=== PATIENT | female | born 1950 | race Caucasian/White ===

== ENCOUNTER → 2017-02-25 | Outpatient (CLI) | payer OTHER, MEDICARE ==
[~2017-02-25] MED LIST: HRBLS PO; MISCCAP3 PO; MULT-506 PO; VITA400C15 PO; VITB12 SL
--- NOTE | 2017-02-25 11:24 | DIAGNOSTIC IMAGING REPORT ---
RIGHT KNEE RADIOGRAPHS WITH COMPARISON STANDING AP RADIOGRAPH OF LEFT KNEE CLINICAL HISTORY: Right knee pain and swelling following injury. COMPARISON: None FINDINGS: Standing AP radiograph of the left knee demonstrates preserved medial and lateral compartment joint spaces. There is a small osteophyte along the medial femoral condyle. There are suspected varicosities within the lower extremities. There is no acute fracture of the right knee. There is moderate medial compartment joint space narrowing of the right knee. A small right knee joint effusion is present. IMPRESSION: 1. Moderate to severe osteoarthritis within the medial compartment of the right knee. 2. Small right knee joint effusion. 3. No acute fracture. Electronically signed by: Mane Lagos M.D. 02/25/2017 11:22 AM Dictated Date/Time: 02/25/2017 11:19 AM
== END | disposition home or self-care (01) ==
LOC: C.RDSM 11:05
PROVIDERS: ATTEND Physician Assistant
DX: M25.561 Pain in right knee (principal)

== ENCOUNTER → 2017-10-06 | Day surgery (SDC) | payer OTHER, MEDICARE ==
[2017-09-20 12:54] VITALS: Ht 162.6 cm; Wt 56.8 kg
[~2017-10-06] VITALS: Ht 162.6 cm; Wt 56.8 kg
[~2017-10-06] MED LIST changes: +ASCO10003 PO; +ATROPINE SULFATE 0.1 MG/ML 5ML SYR IV PRN; +CHOL1TAB46 PO; +COQ10 PO; +EpHEDrine SULFATE INJ 50 MG/ML AMP IV PRN; -HRBLS PO; +MAGNESIUM PO; -MISCCAP3 PO; +MISCCAP80 PO; -MULT-506 PO; +MULTTAB58 PO; +PROPOFOL IV EMULSION 10 MG/ML 20 ML VIAL IV ONE; +SODIUM CHLORIDE 0.9% 500ML 500 ML IV ONE; +TRIPHALA PO; -VITA400C15 PO; +VITA400C3 PO; +VITAMIN B12 PO; -VITB12 SL; +[UNRECOGNIZED DRUG - CODE] PO; +[UNRECOGNIZED DRUG - OTHER] PO; +[UNRECOGNIZED DRUG - REMARK] PO
--- NOTE | 2017-10-06 14:29 | Endo History and Physical ---
History & Physical Date of Service: Oct 06, 2017. Chief Complaint: CHANGE IN BOWEL HABITS Referring Physician: DR. MURGUIA History of Present Illness 67 yo CF who presents for colonoscopy secondary to change in bowel habits. Past Medical History Neurological Disorder, Osteoporosis, Arthritis, Gastrointestinal Disorder, Anxiety, Blood Dyscrasias, Heart Disease Past Surgical History Hx Cardiac Surgery: No Hx Internal Defibrillator: No Hx Pacemaker: No Hx Abdominal Surgery: Yes (HYSTERECTOMY, TUBAL LIGATION, RT INGUINAL HERNIA X 2 ) Hx of Implantable Prosthesis: No Hx Cancer Surgery: No Hx Thoracic Surgery: No Hx Orthopedic: No Hx Urinary Tract Surgery: No Family History Colon CA, Polyp Social History Hx Alcohol Use: Yes (RARELY) Allergies Coded Allergies: Gluten (Verified Allergy, Unknown, SENSITIVITY, 09/20/17) Sulfa Drugs (Verified Allergy, Unknown, HIVES, 09/20/17) Uncoded Allergies: FEATHERS (Allergy, Unknown, EYES SWELLING SHUT, 09/20/17) Current Medications Reported Home Medications Medications Dose Route/Sig Max Daily Dose Days Date Category [Vitamin B12] 1,000 Mcg PO QAM 09/20/17 Reported Vitamin D3 (Cholecalciferol) 5,000 Unit Tab 1 Tab PO QAM 09/20/17 Reported Vitamin C (Ascorbic Acid) 1,000 Mg Tab 1 Tab PO QAM 09/20/17 Reported [Triphala] 2 Cap PO HS 09/20/17 Reported [Magnesium] 2 Tab PO HS 09/20/17 Reported [Stroteum Boost] 2 Cap PO QAM 09/20/17 Reported [Algae-Amilcar] 2 Cap PO QAM 09/20/17 Reported [Coq10] 10 Mg PO QAM 09/20/17 Reported Probiotic (Probiotic Product) 1 Cap Cap 1 Cap PO QAM 09/20/17 Reported [Hemolytic Enzyme] 2 Cap PO AC 09/20/17 Reported Vitamin E 400 Iu (Vitamin E) 400 Unit Cap 2 Cap PO QAM 09/20/17 Reported Multivitamin (Multiple Vitamin) 1 Tab Tab 0.5 Dose PO BID 09/20/17 Reported Vital Signs Weight (Kilograms): 56.82 Height (Feet): 5 Height (Inches): 4 Date Time Temp Pulse Resp B/P (MAP) Pulse Ox O2 Delivery O2 Flow Rate FiO2 10/06/17 14:20 36.7 83 16 125/74 (91) 98 Room Air Physical Exam General Appearance: WD/WN, no apparent distress Respiratory/Chest: Auscultation: breath sounds normal Cardiovascular: Heart Auscultation: RRR Abdomen: Bowel Sounds: normal Inspection & Palpation: soft, non-distended, no tenderness, guarding & rebound Assessment and Plan Assessment: 67 yo CF who presents for colonoscopy secondary to change in bowel habits. Plan: Proceed with colonoscopy.
--- NOTE | 2017-10-06 15:45 | Discharge Instructions ---
Endoscopy Patient Instructions Date / Procedure(s) Performed Oct 06, 2017. Colonoscopy Allergy Information Coded Allergies: Gluten (Verified Allergy, Unknown, SENSITIVITY, 09/20/17) Sulfa Drugs (Verified Allergy, Unknown, HIVES, 09/20/17) Uncoded Allergies: FEATHERS (Allergy, Unknown, EYES SWELLING SHUT, 09/20/17) Discharge Date / Findings Oct 06, 2017. Internal hemorrhoids Medication Instructions OK to resume all medications today as prescribed Reported Home Medications Medications Dose Route/Sig Max Daily Dose Days Date Category [Vitamin B12] 1,000 Mcg PO QAM 09/20/17 Reported Vitamin D3 (Cholecalciferol) 5,000 Unit Tab 1 Tab PO QAM 09/20/17 Reported Vitamin C (Ascorbic Acid) 1,000 Mg Tab 1 Tab PO QAM 09/20/17 Reported [Triphala] 2 Cap PO HS 09/20/17 Reported [Magnesium] 2 Tab PO HS 09/20/17 Reported [Stroteum Boost] 2 Cap PO QAM 09/20/17 Reported [Algae-Amilcar] 2 Cap PO QAM 09/20/17 Reported [Coq10] 10 Mg PO QAM 09/20/17 Reported Probiotic (Probiotic Product) 1 Cap Cap 1 Cap PO QAM 09/20/17 Reported [Hemolytic Enzyme] 2 Cap PO AC 09/20/17 Reported Vitamin E 400 Iu (Vitamin E) 400 Unit Cap 2 Cap PO QAM 09/20/17 Reported Multivitamin (Multiple Vitamin) 1 Tab Tab 0.5 Dose PO BID 09/20/17 Reported Provider Instructions Activity Restrictions - No exercising or heavy lifting for 24 hours. - Do not drink alcohol the day of the procedure. - Do not drive a car or operate machinery until the day after the procedure. - Do not make any important decisions or sign important papers in 24 hours after the procedure. Following Day: - Return to full activity which may include returning to work/school. Diet Start your diet with liquids and light foods (jello, soup, juice, toast). Then eat your usual diet if not nauseated. Treatment For Common After Affects For mild abdominal pain, bloating, or excessive gas: - Rest - Eat lightly - Lie on right side Follow-Up Information Follow-up with DR. MURGUIA as scheduled Anesthesia Information What You Should Know You have had a procedure that required some medicine to reduce anxiety and discomfort. This treatment is called moderate sedation. After receiving the treatment, you may be sleepy, but you will be able to breathe on your own. The effects of the treatment may last for several hours. Follow these instructions along with Activity/Diet recommendations noted above: * Do NOT do anything where dizziness or clumsiness would be dangerous. * Rest quietly at home today, then you can be up and about tomorrow. * Have a responsible person stay with you the rest of today. * You may have had an I.V. today. If so, you may take the dressing off later today. Recommendations Call your doctor if: * Trouble breathing * Continuous vomiting for more than 24 hours * Temperature above 101 degrees * Severe abdominal pain or bloating * Pain not relieved by pain medicine ordered * There is increased drainage or redness from any incision * A large amount of rectal bleeding greater than 2-3 tablespoons. (If you had a polyp/s removed or have hemorrhoids, a small amount of blood - from the rectum is to be expected.) * You have any unanswered questions or concerns. IN THE EVENT OF A SERIOUS EMERGENCY, GO TO THE NEAREST EMERGENCY ROOM Your discharge instructions were prepared by provider Tank Dorado. Patient Instructions Signature Page Yazmin Hall Patient (or Guardian) Signature/Date: I have read and understand the instructions given to me by my caregivers. Caregiver/RN/Doctor Signature/Date: The above-named patient and/or guardian has received patient instructions on this date. + Original Patient Signature Page (only) stays with chart. Please make copy for patient.
[2017-10-06 16:09] VITALS: BP 109/70; PULSE 57; O2SAT 100
--- NOTE | 2017-10-06 16:29 | Anesthesiology Progress Note ---
Anesthesia Post Op Note Date & Time Oct 06, 2017 at 16:29 Vital Signs Pain Intensity: 0 Vital Signs Past 12 Hours Date Time Temp Pulse Resp B/P (MAP) Pulse Ox O2 Delivery O2 Flow Rate FiO2 10/06/17 16:09 57 16 109/70 (83) 100 Room Air 10/06/17 15:59 63 16 120/66 (84) 100 Room Air 10/06/17 15:49 71 16 103/58 (73) 100 Room Air 10/06/17 14:20 36.7 83 16 125/74 (91) 98 Room Air Notes Mental Status: alert / awake / arousable, participated in evaluation Pt Amnestic to Procedure: Yes Nausea / Vomiting: adequately controlled Pain: adequately controlled Airway Patency, RR, SpO2: stable & adequate BP & HR: stable & adequate Hydration State: stable & adequate Anesthetic Complications: no major complications apparent
--- NOTE | 2017-10-06 16:37 | GI REPORT ---
Procedure Date: 10/06/2017 3:18 PM Procedure: Colonoscopy Indications: Change in bowel habits Medicines: Monitored Anesthesia Care Complications: No immediate complications. Estimated Blood Loss: Estimated blood loss: none. Procedure: Pre-Anesthesia Assessment: - Prior to the procedure, a History and Physical was performed, and patient medications and allergies were reviewed. The patient's tolerance of previous anesthesia was also reviewed. The risks and benefits of the procedure and the sedation options and risks were discussed with the patient. All questions were answered, and informed consent was obtained. Prior Anticoagulants: The patient has taken no previous anticoagulant or antiplatelet agents. ASA Grade Assessment: II - A patient with mild systemic disease. After reviewing the risks and benefits, the patient was deemed in satisfactory condition to undergo the procedure. After I obtained informed consent, the scope was passed under direct vision. Throughout the procedure, the patient's blood pressure, pulse, and oxygen saturations were monitored continuously. The scope was introduced through the anus and advanced to the terminal ileum. The colonoscopy was performed without difficulty. The patient tolerated the procedure well. The quality of the bowel preparation was good. The terminal ileum, ileocecal valve, appendiceal orifice, and rectum were photographed. Findings: The perianal and digital rectal examinations were normal. Non-bleeding internal hemorrhoids were found during retroflexion. The hemorrhoids were small. The exam was otherwise without abnormality. Impression: - Non-bleeding internal hemorrhoids. - The examination was otherwise normal. - No specimens collected. Recommendation: - Resume previous diet. - Continue present medications. - Repeat colonoscopy in 5 years for surveillance. - Return to primary care physician as previously scheduled. Takn Dorado, DO 10/06/2017 4:36:30 PM This report has been signed electronically. Note Initiated On: 10/06/2017 3:18 PM I attest to the content of the Intraoperative Record and orders documented therein, exceptions below
== END | disposition home or self-care (01) ==
LOC: C.GI 13:20
PROVIDERS: ATTEND Internal Medicine
DX: R19.4 Change in bowel habit (principal); M81.0 Age-related osteoporosis without current pathological fracture; D75.9 Disease of blood and blood-forming organs, unspecified; I51.9 Heart disease, unspecified; M19.90 Unspecified osteoarthritis, unspecified site; Z80.0 Family history of malignant neoplasm of digestive organs; K64.8 Other hemorrhoids

== ENCOUNTER → 2017-12-06 | Outpatient (CLI) | payer OTHER, MEDICARE ==
[~2017-12-06] MED LIST changes: -ATROPINE SULFATE 0.1 MG/ML 5ML SYR IV PRN; -EpHEDrine SULFATE INJ 50 MG/ML AMP IV PRN; -PROPOFOL IV EMULSION 10 MG/ML 20 ML VIAL IV ONE; -SODIUM CHLORIDE 0.9% 500ML 500 ML IV ONE
--- NOTE | 2017-12-08 07:48 | MAMMOGRAPHY REPORT ---
BILATERAL DIGITAL SCREENING MAMMOGRAM TOMOSYNTHESIS WITH CAD: 12/06/2017 CLINICAL HISTORY: Routine screening. Patient has no complaints. TECHNIQUE: Breast tomosynthesis in addition to standard 2D mammography was performed. Current study was also evaluated with a Computer Aided Detection (CAD) system. COMPARISON: Comparison is made to exams dated: 10/03/2013 ultrasound, 10/03/2013 mammogram - [facility], 08/21/2008, 08/21/2008, and 08/21/2008. BREAST COMPOSITION: There are scattered areas of fibroglandular density in both breasts. FINDINGS: A linear scar marker overlies the upper outer quadrant of the left breast. The glandular p attern is similar to prior mammograms. No suspicious mass, architectural distortion or cluster of mi crocalcifications is seen. IMPRESSION: ACR BI-RADS CATEGORY 1: NEGATIVE There is no mammographic evidence of malignancy. A 1 year screening mammogram is recommended. The pa tient will receive written notification of the results. Approximately 10% of breast cancers are not detected with mammography. A negative mammographic report should not delay biopsy if a clinically suggestive mass is present. Nia Alvarado M.D. ay/:12/06/2017 16:13:55 Circulation Representative: Janine DIOP(Jesus)(Marques), [facility] letter sent: Normal 1/2 BI-RADS Code: ACR BI-RADS Category 1: Negative
== END | disposition home or self-care (01) ==
LOC: C.MAMM 11:37
PROVIDERS: ATTEND Nurse Practitioner Family
DX: Z12.31 Encounter for screening mammogram for malignant neoplasm of breast (principal); Z13.820 Encounter for screening for osteoporosis; E55.9 Vitamin D deficiency, unspecified; M81.0 Age-related osteoporosis without current pathological fracture; M85.88 Other specified disorders of bone density and structure, other site

== ENCOUNTER 2022-02-17 06:41 | Observation (INO) ==
--- NOTE | 2022-01-20 09:51 | PAT Medication Instructions ---
Medication Instructions Date of Service January 20, 2022 Home Medications multivitamin (Daily Multi-Vitamin) 1 tab PO DAILY CBD oil 25 mg PO QAM Circutol 1 tab PO BID Triphala Herbal for Digestion 2 tab PO BID ascorbic acid (vitamin C) 1,000 mg tablet 500 mg PO BID ashwagandha root extract 300 mg capsule 300 mg PO DAILY cholecalciferol (vitamin D3) 125 mcg/mL (5,000 unit/mL) oral drops 125 mcg PO HS hesperidin-diosmin 250 mg-650 mg tablet 1 tab PO DAILY omega-3 fatty acids 1,000 mg capsule (Super Ceres-3) 1,280 mg PO DAILY rutin 500 mg tablet 500 mg PO BID tumeric with curmumin 1 tab PO DAILY ubiquinone 90 mg disintegrating tablet 200 mg PO DAILY vitamin E 200 unit capsule 400 unit PO BID Algae Amilcar Plus 2 dose PO DAILY Amino Acid Syngergy 3 tab PO BID Devigest 2 tab PO DAILY Nattovena 1 tab PO BID Neprinol 1 tab PO BID Pectasol 1 cap PO BID Querctetin 500 mg PO QAM Serretia 1 tab PO BID Strontium 750 mg PO QAM Thyroid Support 1 tab PO BID Vein Care 1 tab PO BID gabapentin 300 mg tablet 300 mg PO QAM magnesium 200 mg tablet 300 mg PO HS magnesium citrate 100 mg tablet 400 mg PO HS naltrexone 50 mg tablet 3 mg PO QPM STOP taking 2 weeks before surgery (or as soon as possible if surgery is within 2 weeks) Circutol 1 tab PO BID Triphala Herbal for Digestion 2 tab PO BID ashwagandha root extract 300 mg capsule 300 mg PO DAILY hesperidin-diosmin 250 mg-650 mg tablet 1 tab PO DAILY omega-3 fatty acids 1,000 mg capsule (Super Ceres-3) 1,280 mg PO DAILY rutin 500 mg tablet 500 mg PO BID tumeric with curmumin 1 tab PO DAILY ubiquinone 90 mg disintegrating tablet 200 mg PO DAILY vitamin E 200 unit capsule 400 unit PO BID Algae Amilcar Plus 2 dose PO DAILY Amino Acid Syngergy 3 tab PO BID Devigest 2 tab PO DAILY Nattovena 1 tab PO BID Neprinol 1 tab PO BID Pectasol 1 cap PO BID Querctetin 500 mg PO QAM Serretia 1 tab PO BID Strontium 750 mg PO QAM Vein Care 1 tab PO BID DO NOT take the morning of surgery multivitamin (Daily Multi-Vitamin) 1 tab PO DAILY CBD oil 25 mg PO QAM ascorbic acid (vitamin C) 1,000 mg tablet 500 mg PO BID Take morning of surgery With a small sip of water, OTHERWISE NOTHING TO EAT OR DRINK AFTER MIDNIGHT: Thyroid Support 1 tab PO BID gabapentin 300 mg tablet 300 mg PO QAM Take evening before surgery Thyroid Support 1 tab PO BID magnesium 200 mg tablet 300 mg PO HS magnesium citrate 100 mg tablet 400 mg PO HS Other Notes STOP 72 hours prior to surgery (please check if okay with prescribing provider) naltrexone 50 mg tablet 3 mg PO QPM If you have any questions please call us at [phone] or [phone] or [phone] or [phone]
--- NOTE | 2022-01-21 13:52 | Anesthesiology Consultation ---
Date of Service January 21, 2022 Assessment & Plan (1) Encounter for pre-operative examination: - COVID screening: Per assessment on 01/21: No known COVID-19 positive contacts. Travel screen negative. Patient vaccinated. Patient reports 12 days ago: sneez ing, mild rhinorrhea, sore throat. Home test was negative. Patient states that symptoms resolved except mild headache/pressure. Patient advised to contact [facility] if symptoms worsening/persistent. Patient vaccinated. Preop Covid test scheduled 02/15 ([place]). Awaiting results. - Post-operative course: Per inital OR booking comments, plan for outpatient joint program. Patient seen at [facility] 01/21. Patient reports strong support at home post-operatively. She states her and her are concerned about going home same day (specifically d/t hx of hypotension and concerns with post-op pain management). She prefers to at least stay overnight if possible. Dahiana at surgeon's office made aware. I advised them to contact [facility] if they change there mind and would like to request outpatient- if so, will need to review with an anesthesiologist. Case switched to 23 hour Obs. - Hx multiple sclerosis* Chart Review Chart Review: Acceptable Risk for Surgery (pending most recent cardiology office visit note) and Patient seen in Pre Admission Testing Teaching & Discussion Pre-Anesthesia Teaching/Discussion Notes: Instructed NPO after midnight before surgery,except medications with 15 cc of water. Medication instructions provided according to the [facility] guidelines. History Surgery Operation Date: 02/17/22 08:50 Proposed Procedures p Right Total Knee Arthroplasty - Jerrod Shine MD Height/Weight Height: 5 ft 3 in Weight: 60.6 kg Allergies Allergy/AdvReac Type Severity Reaction Status Date / Time gluten Allergy Unknown Celiac Verified 01/20/22 09:55 disease Sulfa (Sulfonamide Allergy Unknown Hives Verified 01/20/22 09:55 Antibiotics) FEATHERS Allergy Unknown Eye Uncoded 01/20/22 09:55 swelling Medications Home Medications Medication Instructions Recorded Confirmed Last Taken multivitamin (Daily Multi-Vitamin) 1 tab PO DAILY 01/11/20 01/19/22 08/25/21 CBD oil 25 mg PO QAM 12/30/20 01/19/22 08/25/21 Circutol 1 tab PO BID 12/30/20 01/19/22 08/25/21 Triphala Herbal for Digestion 2 tab PO BID 12/30/20 01/19/22 08/25/21 ascorbic acid (vitamin C) 1,000 mg 500 mg PO BID 12/30/20 01/19/22 08/25/21 tablet ashwagandha root extract 300 mg 300 mg PO DAILY cap 12/30/20 01/19/22 08/25/21 capsule cholecalciferol (vitamin D3) 125 125 mcg PO HS ml 12/30/20 01/19/22 08/25/21 mcg/mL (5,000 unit/mL) oral drops hesperidin-diosmin 250 mg-650 mg 1 tab PO DAILY 12/30/20 01/19/22 08/25/21 tablet omega-3 fatty acids 1,000 mg 1,280 mg PO DAILY 12/30/20 01/19/22 08/25/21 capsule (Super Cooper-3) rutin 500 mg tablet 500 mg PO BID 12/30/20 01/19/22 08/25/21 tumeric with curmumin 1 tab PO DAILY 12/30/20 01/19/22 08/25/21 ubiquinone 90 mg disintegrating 200 mg PO DAILY 12/30/20 01/19/22 08/25/21 tablet vitamin E 200 unit capsule 400 unit PO BID 12/30/20 01/19/22 08/25/21 Algae Amilcar Plus 2 dose PO DAILY 01/19/22 01/19/22 Unknown Amino Acid Syngergy 3 tab PO BID 01/19/22 01/19/22 Unknown Devigest 2 tab PO DAILY 01/19/22 01/19/22 Unknown Nattovena 1 tab PO BID 01/19/22 01/19/22 Unknown Neprinol 1 tab PO BID 01/19/22 01/19/22 Unknown Pectasol 1 cap PO BID 01/19/22 01/19/22 Unknown Querctetin 500 mg PO QAM 01/19/22 01/19/22 Unknown Serretia 1 tab PO BID 01/19/22 01/19/22 Unknown Strontium 750 mg PO QAM 01/19/22 01/19/22 Unknown Thyroid Support 1 tab PO BID 01/19/22 01/19/22 Unknown Vein Care 1 tab PO BID 01/19/22 01/19/22 Unknown gabapentin 300 mg tablet 300 mg PO QAM 01/19/22 01/19/22 Unknown magnesium 200 mg tablet 300 mg PO HS 01/19/22 01/19/22 Unknown magnesium citrate 100 mg tablet 400 mg PO HS 01/19/22 01/19/22 Unknown naltrexone 50 mg tablet 3 mg PO QPM 01/19/22 01/19/22 Unknown Past Medical History Medical History AVM (arteriovenous malformation) of colon Rectal Carpal tunnel syndrome Celiac disease Chronic low blood pressure Baseline BP 100s/70s (occasional dizziness) Elevated TSH euthyroid off prescription meds (on Thyroid supplementation) History of diverticulitis Mild tricuspid regurgitation Per 07/2020 echo Multiple sclerosis No significant flare since 2010 Mild, intermittent dysphagia Neuropathy Rheumatoid arthritis Follows with rheumatology Scleroderma Shingles 08/2021- residual light sensitivity/watering TMJ (temporomandibular joint disorder) Venous insufficiency Exercise / Class Metabolic Activity II 4-5 Yardwork/Stairs/Walk up hill (one FS (no CP, no SOB), mild SOB if very steep hill) Past Family History Family History Father Alcohol abuse Colorectal cancer Mother Anxiety Heart disease Cardiac disorder Myocardial infarction Stroke syndrome Hypertension Stroke Gallbladder disease Pre-diabetes Grandmother Goiter Heart disease Hypertension Stroke Pre-diabetes Aunt Breast cancer Denies family history of Ovarian cancer Prostate cancer Past Surgical History Surgical History History of colonoscopy History of endoscopy History of hemorrhoidectomy History of hernia repair Right inguinal hernia repair with Dr. Zambrano 08/26/08 History of hernia surgery JUN 2021 History of surgery LEFT BREAST 2 CYSTS REMOVED /BENIGN History of vaginal hysterectomy Status post phlebectomy stab phlebectomy of varicose veins Past Anesthesia History No Hx of Anesthesia Complications Daughter: At 6 months old, "airway shut down" when breathing tube removed after ear tubes. No similar issues for patient. History of PONV No Hx of PONV and Hx of Motion Sickness Social History Smoking Status: Never smoker Do You Dip or Chew Tobacco: No Hx Alcohol Use: Yes alcohol intake frequency: a few times a month Hx Substance Use: No substance use type: other Substance Use Type Other:: CBD Review of Systems Patient denies chest pain, shortness of breath, dyspnea on exertion, fever, chills, cough, wheezing, palpitations. Physical Exam Vital Signs VITALS BP 104/65 P 74 TEMP 98.5 SP02 95%RA RESP 16 PHYSICAL Full cervical extension range of motion. Full TMJ range of motion. TMD 3 finger breaths Mallampati Score 2 Dentition: intact Lungs: clear throughout to auscultation Cardiac: regular rate and rhythm, no murmurs noted Spine: normal Carotid arteries: negative bruit Extremities: no edema Lab Results Anesthesia Preop Results Results Anesthesia Widget: WBC 5.75 K/uL (4.8-10.8) 01/21/22 Hgb 13.8 g/dL (12.0-16.0) 01/21/22 Hct 41.6 % (37-47) 01/21/22 Plt 229 K/uL (130-400) 01/21/22 Na 140 mmol/L (136-145) 01/21/22 K 5.0 mmol/L (3.5-5.1) 01/21/22 Cl 102 mmol/L (98-107) 01/21/22 CO2 34 mmol/L (21-32) H 01/21/22 BUN 20 mg/dl (6-23) 01/21/22 Creat 0.85 mg/dl (0.6-1.2) 01/21/22 Glucose Level 85 mg/dl (70-99(Fasting)) 01/21/22 PT 10.3 Seconds (9.0-12.0) 01/21/22 PTT 27.5 Seconds (21.0-31.0) 01/21/22 INR 1.0 (0.9-1.1) 01/21/22 Blood Type A Positive 01/21/22 Antibody Screen NEGATIVE 01/21/22 Testing Electrocardiogram Date: 01/21/22 NSR at 65bpm. Chest X-Ray Date: 01/21/22 FINDINGS: The cardiomediastinal and hilar silhouettes are within normal limits. No pneumothorax, pleural effusion, airspace consolidation or overt pulmonary edema. Bones of the chest appear grossly intact. IMPRESSION: No acute process. Echocardiogram Date: 07/24/20 LVEF 60-64%. No regional motion abnormality. Mild TR. Stress Test Date: 07/24/20 Type: exercise (+ nuclear) LVEF 65%. No regional motion abnormality. Myocardial perfusion imaging is normal. 9.4 METS. LVEF 65%. 116% MPHR. Cervical Spine Date: 01/21/22 FINDINGS: No prevertebral edema. The predental interval appears normal. Multilevel intervertebral disc space narrowing, moderate at C4-C5. Mild to moderate spondylitic spurring and uncovertebral hypertrophy with moderate facet arthrosis. No acute fracture. Straightening of the normal cervical lordosis. There is 2 mm anterolisthesis C3 on C4 with neutral positioning and 2 mm with flexion. No anterolisthesis or retrolisthesis identified with extension. IMPRESSION: Degenerative changes above without acute fracture. Normal predental interval. Minimal grade 1 anterolisthesis C3 on C4 may be on a degenerative basis.
--- NOTE | 2022-02-15 18:38 | History and Physical Report ---
DATE OF ADMISSION: 02/17/2022 CHIEF COMPLAINT: Right knee pain and discomfort. HISTORY OF PRESENT ILLNESS: The patient is a 72-year-old female with a 14-year history of fairly wel l-controlled MS who presents for surgical treatment of her right knee. She has got a long history of knee pain and discomfort, describes it has gotten worse over time. She has been followed by Dr. Danis joseph of [facility]. She has failed conservative measures. She would like to have her knee replaced. He apparently could not get her in for several months ago, so she presents here f or surgical management. She is not interested in further conservative care. She has been exhausted that. Her pain is global. The more she is on it, the more it hurts. It is increased with weightbea ring. Limps more as the day goes on. PAST MEDICAL HISTORY: Significant for, 1. MS x14 years. 2. Low back pain/sciatica. PAST SURGICAL HISTORY: Includes, 1. Hysterectomy. 2. Varicose vein surgery. 3. Breast cyst removal. 4. Inguinal hernia repair. ALLERGIES: Gluten. CURRENT MEDICATIONS: Include. 1. Vitamin C. 2. Cannabidiol. 3. CBD oil. 4. Vitamin D. 5. Digestive enzymes. 6. Acetylcysteine. 7. Fisetin. 8. Lutein. 9. Hesperidin. 10. Zeaxanthin. 11. Multivitamin. 12. Naltrexone. 13. Mirapex. 14. Austin-3. 15. Triphala herbal medicine. 16. Turmeric. 17. Ubiquinone. 18. Vitamin E. SOCIAL HISTORY: A 72-year-old female. She is . Her is a inbound customer service agent. She does not s moke. FAMILY HISTORY: Noncontributory. REVIEW OF SYSTEMS: Negative for diabetes. She does carry this MS diagnosis, which is well controlle d. No fevers. No history of DVT or PE. PHYSICAL EXAMINATION: GENERAL: Shows a pleasant middle-aged female. Looks to be in good health. HEENT: Benign. NECK: Supple. No lymphadenopathy. LUNGS: Clear to auscultation. HEART: Regular rate and rhythm. ABDOMEN: Soft, nontender, nondistended. EXTREMITIES: Grossly neurovascularly intact except as follows: Examination of the right knee reveal s the patient ambulates independently. Limps a little bit on the right side. She has got varus alig nment to her knee. She does have a varus thrust with weightbearing. She has got bony hypertrophy me dially. Range of motion is 5 degrees short of full extension to 120 degrees of flexion. No instabil ity. X-RAYS: X-rays of the right knee were reviewed. They show advanced right knee DJD. She has got com plete loss of her medial joint space. She has subchondral sclerosis. ASSESSMENT: A 72-year-old white female with underlying well-controlled multiple sclerosis with advan aayush right knee degenerative joint disease. She has failed conservative treatment. She would like to have her knee replaced. PLAN: We are going to proceed with right knee replacement. Risks and benefits of this procedure wer e explained to the patient that include but not limited to DVT, PE, , infection, neurological in jury, vascular injury, bleeding problem, pain, limited range of motion, stiffness, failure to relieve her symptoms, incomplete relief of symptoms, need for further surgery in the future, etc. The patie nt understands and desires to proceed. Informed consent was obtained. She was considering doing this as an outpatient, but now prefers to stay overnight. We will plan on her staying overnight and hopefully discharge after therapy in the morning. The patient does apparently have some degree of NICKEL ALLERGY. We are going to use a Khan and Neph ew Zirconium Journey II knee to avoid all metal allergy issues. Job ID: [id number]
[~2022-02-17 06:41] MED LIST changes: +ACETAMINOPHEN 500 MG TAB PO SCH; -ASCO10003 PO; +BUPIVACAINE 0.5 % 5 MG/1 ML PF 10ML VIAL ONE; +BUPIVACAINE LIPOSOME/PF 266 MG, BUPIVACAINE/EPINEPHRINE 50 ML, SODIUM CHLORIDE 0.9% 30 ... INFIL SCH; -CHOL1TAB46 PO; -COQ10 PO; +CeleBREX 200 MG CAP PO SCH; +FAMOTIDINE 20 MG TAB PO SCH; +LR 500ML BOLUS, THEN 15ML/HR IV SCH; +LR 60ML/HR IV SCH; -MAGNESIUM PO; +METOCLOPRAMIDE HCL 10 MG TABLET PO SCH; -MISCCAP80 PO; -MULTTAB58 PO; +ROPIVACAINE 0.5% 5 MG/ML 30 ML VIAL ONE; +Scopolamine 1 MG TDSY TD SCH; +TRANEXAMIC ACID 1,000 MG **IV Intra-op IV SCH; -TRIPHALA PO; -VITA400C3 PO; -VITAMIN B12 PO; -[UNRECOGNIZED DRUG - CODE] PO; -[UNRECOGNIZED DRUG - OTHER] PO; -[UNRECOGNIZED DRUG - REMARK] PO; +ceFAZolin 2000MG 2,000 MG/15 ML SYR IV SCH
--- NOTE | 2022-02-17 06:52 | History & Physical Bridge Note ---
Date of Service February 17, 2022 History & Physical Bridge Note I have examined the patient, reviewed the History & Physical and in the interval since the performance of the History & Physical I have noted the following changes of clinical significance: no changes noted
[2022-02-17] MEDS ORDERED: MIDAZOLAM HCL 1 MG/ML 2ML VIAL ONE (08:00)
[2022-02-17] MEDS ORDERED: PROPOFOL IV EMULSION 10 MG/ML 20 ML VIAL IV ONE (08:02)
[2022-02-17] MEDS ORDERED: ONDANSETRON INJ 2 MG/ML 2 ML VIAL IV PRN ×2 (08:24→11:57)
[2022-02-17] MEDS ORDERED: ePHEDrine sulfate 50 MG/ML AMP IV PRN (08:24)
[2022-02-17] MEDS ORDERED: fentaNYL citrate 100 MCG/2 ML VIAL IV PRN (08:24)
[2022-02-17] MEDS ORDERED: ATROPINE SULFATE 0.1 MG/ML 10ML SYR IV PRN (08:24)
[2022-02-17] MEDS ORDERED: BUPIVACAINE LIPOSOME 1.3% 266 MG/20 ML VIAL ONE (08:50)
[2022-02-17] MEDS ORDERED: SODIUM CHLORIDE 0.9% PF 50 ML VIAL ONE (08:50)
[2022-02-17] MEDS ORDERED: BUPIVACAINE/EPINEPHRINE 0.25% 1:200,000 30 ML VIAL ONE (08:50)
[2022-02-17] MEDS ORDERED: ePHEDrine sulfate 50 MG/ML AMP ONE (09:35)
--- NOTE | 2022-02-17 11:14 | Operative Report ---
PG Post Operative Report Pre & Post Diagnosis Operation Date: 02/17/22 08:45 Pre-Op Diagnosis: Right Knee Osteoarthritis Post-Op Diagnosis: Right Knee Osteoarthritis I identified the patient and participated in the time-out.: Yes Procedure Operation Date: 02/17/22 08:45 Actual Procedures p Right Total Knee Arthroplasty(Right) - Jerrod Shine MD Surgeon Jerrod Shine MD Remelt Furnace Expediter Hernandez Taylor PA-C Estimated Blood Loss 50 Findings Consistent with Post-Op Diagnosis Operative findings real advanced right knee DJD. She has extensive grade 4 [id number] disease in the medial compartment. She had a less severe a patellofemoral and even more less severe lateral compartment disease. She a varus deformity to her knee. Osteophytes primarily in the medial compartment. She had eburnation of the entire medial compartment. Specimens Right knee sent for pathology Anesthesia Type Spinal MAC Complications none Disposition Accompanied Patient To Recovery: No Indications Patient is a 72-year-old female with a history of well-controlled MS who has had several year history of progressive increasing right knee pain discomfort. She has been through extensive conservative treatment became less successful over time. She elected proceed with total knee arthroplasty. Description of Procedure Operative implants consist of: 1. Khan & Nephew journey 2 size 4 posterior stabilized right femoral component. 2. Khan & Nephew journey 2 size 3 right tibial tray. 3. 10 mm right posterior stabilized polyethylene insert. 4. 29 x 9 all probably patella. The patient was taken to the operating, identified, placed on the operating table supine position protectors were properly padded. IV antibiotics tried by anesthesia team. Spinal anesthetic and abductor canal block had provided holding area. Herman catheter was placed in sterile fashion. Right thigh turn was then placed in the right lower extremities and prepped draped in usual sterile fashion. The right leg was elevated exsanguinated with use of an Esmarch in terms playset 3 mmHg. An anterior approach of the right knee was then performed to longitudinal incision centered over the patella. Sharp dissection was carried through subcutaneous tissue down the extensor mechanism. Medial parapatellar arthrotomy incision was made. Some subperiosteal dissection was carried out medially. The fat pad was resected from each patella tendon. Lateral patellofemoral ligament was released. Patella subluxated laterally and the was flexed. The osteophytes were taken off distal femur. The ACL and PCL released from the distal femur at tip. The tibia was subluxated anteriorly. The external tibial alignment jig was then placed in the external and anterior face of the tibia and adjusted 8 mm medially. Proximal tibial cut was made remove about 2 mm of bone from the most deficient aspect medial tibial plateau. Some osteophytes taken off medially. The tibia sized to a size 3. Attention drawn the femur. The distal femur examined the sharp drop with intramedullary canal was suction. A right 5 degree valgus cutting guide was placed. Distal femoral cutting block was pinned in place. Distal femoral cut was made to take an additional 2 mm of bone off distal femur. The femur was then sized to a size for almost exactly. The AP cutting block was pinned parallel to the epicondylar axis which was 4 degrees of external rotation. The anterior cut, anterior cord, posterior cut, posterior chamfer, anterior chamfer cuts were made. The knee was then flexed. The posterior osteophytes were removed. The remnants of the medial and lateral menisci were excised. The femoral component was placed. The milling device for the trochlea was in the intercondylar notch area was then used to create the box. The trochlear component was placed. The tibial tray was pinned in place. The drill and stem punch were used to create defect in proximal tibia for the tibial tray. I then trialed the knee and the 10 mm insert fit most appropriately. Attention drawn the patella. The patella was cleaned of all soft tissues. Patella thickness measured 21 mm in thickness was cut down to 12. Was sized to a size 29 patella. The holes were drilled for the patella. The lateral osteophyte was removed. Patella button was placed. Knee was taken through range of motion patella tracked nicely with no thumbs test. Attention drawn to placing permanent components. All trial components were removed. Bone plug was placed in the distal femur limit blood loss. A double batch Palacos G cement was mixed. A Khan & Nephew journey 2 size posterior stabilized right femoral component was then placed followed by a size 3 right tibial tray, a 10 mm posterior stabilized polyethylene insert, and a 29 x 9 patella. The knee was brought out into full extension until cement hardened. Final cement treatment then performed. Pericapsular tissues were injected with total 100 cc of combination of 20 cc of Exparel, 30 cc normal saline, 50 cc of quarter percent Marcaine with epinephrine. Patient did receive 1 g tranexamic acid but the tourniquet was then let down for final turn time 59 minutes. Hemostasis reduced electrocautery. Extensor mechanism closed with combination 1 PDS suture #1 Vicryl suture in [id number] fashion with extensor mechanism checked found to be intact the subcutaneous tissues then closed with 2 Dexon suture in a buried interrupted fashion for skin was closed skin alysa. Leg was then cleaned and dried and sterile dressed with Xeroform, 4 x 4's, sterile cast p adding, Honorio bandage were applied. Patient then transferred to the recovery room in stable condition. The patient tolerated the procedure well and there were no complications. Hernandez Taylor, my physician operations administrative assistant, was present for the entire procedure. His assistance was required for proper patient positioning, prepping and draping, surgical exposure, retraction, perform the technical details of the operation, placement of the implants, closure of the wound, placement of sterile bandage. I attest to the content of the Intraoperative Record and any orders documented therein. Any exceptions are noted below.
--- NOTE | 2022-02-17 11:54 | Anesthesiology Progress Note ---
Date of Service February 17, 2022 Anesthesia Post Procedure Vital Signs Vital Signs: Temp Pulse Pulse Resp BP Pulse Ox 02/17/22 11:35 36.4 C L 59 L 16 97/63 L 98 02/17/22 11:25 57 L 14 109/65 98 02/17/22 11:15 60 17 115/67 96 02/17/22 11:05 57 L 15 108/64 100 02/17/22 10:58 36.1 C L 62 13 110/62 100 02/17/22 07:28 36.9 C 62 16 123/82 94 Pain Intensity Right Knee: Pain Intensity: 4 Transfer of Care Handoff Completed per policy Notes Mental Status: alert / awake / arousable and participated in evaluation Patient Amnestic to Procedure: Yes Nausea / Vomiting: adequately controlled Pain: adequately controlled Airway Patency, RR, SpO2: stable & adequate BP & HR: stable & adequate Hydration State: stable & adequate Neuraxial Anesthesia: was administered and sensory block is resolving Anesthetic Complications: no major complications apparent and Pt Satisfied with anesthetic care
--- NOTE | 2022-02-17 11:56 | XRay Report ---
XR knee RT 1 or 2V routine HISTORY: 72 years-old Female Surgical Post Op right knee total joint arthroplasty COMPARISON: Right knee radiographs 11/05/2021 TECHNIQUE: AP view of the right knee FINDINGS: Single view of the right knee demonstrates right knee total joint arthroplasty with midline skin stap les and expected postoperative soft tissue swelling with deep tissue air. IMPRESSION: Single view right knee radiograph demonstrates right knee total joint arthroplasty with e xpected postoperative changes. Limited evaluation without a lateral view submitted. ACT 112: Negative or not required by law. The above report was generated using voice recognition software. It may contain grammatical, syntax o r spelling errors. Electronically signed by: Huy Hernandez M.D. 02/17/2022 11:55 AM
[2022-02-17] MEDS ORDERED: HYDROmorphone INJ 0.5 MG/0.5 ML SYR IV PRN (11:57)
[2022-02-17] MEDS ORDERED: ALUMINUM/MAGNESIUM SUSP 30 ML UDC PO PRN (11:57)
[2022-02-17] MEDS ORDERED: MAGNESIUM HYDROXIDE SUSP 30 ML UDC PO PRN (11:57)
[2022-02-17] MEDS ORDERED: METOCLOPRAMIDE HCL INJ 5 MG/ML 2 ML VIAL IV PRN (11:57)
[2022-02-17] MEDS ORDERED: NALOXONE HCL 0.4 MG/1 ML VIAL/CARP IV PRN (11:57)
[2022-02-17] MEDS ORDERED: oxyCODONE HCL IR 5 MG TAB (IMMEDIATE RELEASE) PO PRN (11:57)
[2022-02-17] MEDS ORDERED: bisacodyL 10 MG SUPP PR PRN (11:57)
[2022-02-17] MEDS: SODIUM CHLORIDE 0.9% 1000ML 1,000 ML IV SCH ×2 (12:08→22:10)
[2022-02-17] MEDS: KETOROLAC TROMETHAMINE 15 MG/ML VIAL IV SCH ×2 (13:57→19:31)
[2022-02-17] MEDS: ACETAMINOPHEN 500 MG TAB PO SCH ×2 (13:57→22:06)
--- NOTE | 2022-02-17 14:44 | Progress Notes ---
DATE OF SERVICE: 02/17/2022. SUBJECTIVE: A 72-year-old female postop from a right knee replacement. She is doing pretty well. J ust starting to get some pain in her leg. No chest pain or shortness of breath. Not feeling dizzy o r lightheaded. OBJECTIVE: VITAL SIGNS: Temperature of 36.3. Vital signs are stable. GENERAL: Physical examination shows a pleasant, elderly female. She is sitting up in bed and looks quite comfortable. LUNGS: Clear to auscultation. HEART: Regular rate and rhythm. ABDOMEN: Soft, nontender, nondistended. EXTREMITIES: Grossly neurovascularly intact except as follows: Examination of the right leg reveals the patient's leg is well aligned. Dressings are clean, dry, and intact. She can dorsiflex and nickolas ntarflex her foot appropriately. She is neurologically intact. ASSESSMENT: A 72-year-old female with underlying MS postop from a right knee replacement, doing pret ty well. Pain is controlled so far. She is neurologically intact. PLAN: 1. DVT prophylaxis to include thigh-high TEDs, SCDs, and aspirin twice a day. 2. PT, OT, weightbear as tolerated. Right total knee protocol. 3. Pain control, doing okay with current pain regimen. 4. IV antibiotics x24 hours. 5. Disposition: Plan is to discharge to home with home health once adequately recovered and medical ly stable. Will see how she does in therapy tomorrow. Job ID: [id number]
[2022-02-17] MEDS: Scopolamine CHECK PATCH PLACEMENT SCH (16:59)
[2022-02-17] MEDS ORDERED: TRANEXAMIC ACID / 0.7% NACL 1,000 MG/100 ML BAG IV SCH (17:00)
[2022-02-17] MEDS: ceFAZolin 1000MG 1,000 MG/7.5 ML SYR IV SCH (17:58)
[2022-02-17] MEDS: ASCORBIC ACID 500 MG TAB PO SCH (17:58)
[2022-02-17] MEDS ORDERED: RUTIN 500 MG PO SCH (21:00)
[2022-02-17] MEDS ORDERED: [UNRECOGNIZED DRUG - OTHER] PO SCH (21:00)
[2022-02-17] MEDS ORDERED: [UNRECOGNIZED DRUG - OTHER] PO SCH (21:00)
[2022-02-17] MEDS ORDERED: NON-FORMULARY MEDICATION (Ascorbic Acid (Vitamin C) 1,000 mg tablet) PO SCH (21:00)
[2022-02-17] MEDS ORDERED: [UNRECOGNIZED DRUG - OTHER] PO SCH (21:00)
[2022-02-17] MEDS ORDERED: NON-FORMULARY MEDICATION (Magnesium Citrate 100 mg Tablet) PO SCH (21:00)
[2022-02-17] MEDS ORDERED: [UNRECOGNIZED DRUG - OTHER] PO SCH (21:00)
[2022-02-17] MEDS ORDERED: SENNA 8.6 MG TAB PO SCH (21:00)
[2022-02-17] MEDS ORDERED: THYROID SUPPORT PO SCH (21:00)
[2022-02-17] MEDS ORDERED: CHOLECALCIFEROL 5,000 UNITS 125 MCG TAB PO SCH (21:00)
[2022-02-17] MEDS ORDERED: [UNRECOGNIZED DRUG - OTHER] PO SCH (21:00)
[2022-02-17] MEDS ORDERED: [UNRECOGNIZED DRUG - OTHER] PO SCH (21:00)
[2022-02-17] MEDS ORDERED: TRIPHALA PO SCH (21:00)
[2022-02-17] MEDS ORDERED: NON-FORMULARY MEDICATION (Magnesium 200 mg Tablet) PO SCH (21:00)
[2022-02-17] MEDS ORDERED: [UNRECOGNIZED DRUG - OTHER] PO SCH (21:00)
[2022-02-17] MEDS: ASPIRIN 81 MG ECTAB PO SCH (22:04)
[2022-02-17] MEDS: TOCOPHERYL, DL-ALPHA 100 UNITS CAP PO SCH (22:05)
[2022-02-17] MEDS: DOCUSATE SODIUM 100 MG CAP PO SCH (22:06)
[2022-02-18] MEDS: Scopolamine CHECK PATCH PLACEMENT SCH ×2 (00:08→07:52)
[2022-02-18] MEDS: ceFAZolin 1000MG 1,000 MG/7.5 ML SYR IV SCH (00:08)
[2022-02-18] MEDS: KETOROLAC TROMETHAMINE 15 MG/ML VIAL IV SCH ×3 (00:08→11:49)
[2022-02-18] MEDS: ACETAMINOPHEN 500 MG TAB PO SCH ×2 (06:31→13:10)
[2022-02-18] MEDS: ASPIRIN 81 MG ECTAB PO SCH (07:53)
[2022-02-18] MEDS: TOCOPHERYL, DL-ALPHA 100 UNITS CAP PO SCH (07:53)
[2022-02-18] MEDS: DOCUSATE SODIUM 100 MG CAP PO SCH (07:53)
[2022-02-18] MEDS: ASCORBIC ACID 500 MG TAB PO SCH (07:54)
[2022-02-18] MEDS ORDERED: dexAMETHasone 10 MG in SYRINGE 0 ML IV SCH (08:00)
[2022-02-18 08:49] LABS: Hematocrit (blood only) 34.6 % (37-47); Hemoglobin 11.4 g/dL (12.0-16.0); Mean Corpuscular Hemoglobin 29.9 pg (25-34); Mean Corpuscular Hgb Conc 32.9 g/dL (32-36); Mean Corpuscular Volume 90.8 fL (80-100); Mean Platelet Volume 9.9 fL (7.4-10.4); Platelet Count 156 K/uL (130-400); RDW Coefficient of Variation 13.3 % (11.5-14.5); RDW Standard Deviation 43.9 fL (36.4-46.3); Red Blood Count 3.81 M/uL (4.2-5.4); White Blood Count 6.94 K/uL (4.8-10.8)
[2022-02-18] MEDS ORDERED: ASHWAGANDHA ROOT EXTRACT 300 MG PO SCH (09:00)
[2022-02-18] MEDS ORDERED: [UNRECOGNIZED DRUG - OTHER] PO SCH (09:00)
[2022-02-18] MEDS ORDERED: MULTIVITAMIN TAB PO SCH (09:00)
[2022-02-18] MEDS ORDERED: NON-FORMULARY MEDICATION (Multivitamin [Daily Multi-Vitamin] tablet) PO SCH (09:00)
[2022-02-18] MEDS ORDERED: GABAPENTIN 300 MG CAP PO SCH (09:00)
[2022-02-18] MEDS ORDERED: [UNRECOGNIZED DRUG - OTHER] PO SCH (09:00)
[2022-02-18] MEDS ORDERED: FATTY ACIDS PO SCH (09:00)
[2022-02-18] MEDS ORDERED: STRONTIUM PO SCH (09:00)
[2022-02-18] MEDS ORDERED: [UNRECOGNIZED DRUG - OTHER] PO SCH (09:00)
[2022-02-18] MEDS ORDERED: UBIQUINONE PO SCH (09:00)
[2022-02-18] MEDS ORDERED: OMEGA PO SCH (09:00)
[2022-02-18] MEDS ORDERED: [UNRECOGNIZED DRUG - OTHER] PO SCH (09:00)
[2022-02-18] MEDS ORDERED: DOCUSATE SODIUM/SENNA 50/8.6MG TAB PO SCH (09:00)
[2022-02-18] MEDS ORDERED: QUERCETIN 500 MG PO SCH (09:00)
[2022-02-18 09:13] LABS: BUN Creatinine Ratio 21.1 (10-20); Calcium 8.7 mg/dl (8.5-10.1); Est GFR (Non-African American) 86.3 ml/min; Potassium 3.9 mmol/L (3.5-5.1)
--- NOTE | 2022-02-18 09:18 | Progress Notes ---
DATE OF SERVICE: 02/18/2022 SUBJECTIVE: A 72-year-old female postop day 1 from right knee replacement. She is doing pretty well . A little bit of a rough night last night due to problems with her urinary catheter. It was not a knee problem. No chest pain or shortness of breath. Not feeling dizzy or lightheaded. OBJECTIVE: VITAL SIGNS: Temperature is 36.9. Vital signs are stable. PHYSICAL EXAMINATION: GENERAL: Shows a pleasant middle-aged female. She is lying in bed, looks comfortable. LUNGS: Clear to auscultation. HEART: Regular rate and rhythm. ABDOMEN: Soft, nontender, nondistended. EXTREMITIES: Grossly neurovascularly intact except as follows: Examination of the right leg reveals the leg to be well aligned. Dressings clean, dry and intact. She can dorsiflex and plantarflex her foot appropriately. She is neurologically intact. LABORATORIES: Labs are pending. ASSESSMENT: A 72-year-old female postoperative day 1 from a right knee replacement, doing pretty wel l. Pain is controlled. She is neurologically intact. Had some problems with her catheter last even ing, but that is out. PLAN: 1. DVT prophylaxis includes thigh-high TEDs, SCDs, and aspirin twice a day. 2. PT, OT, weightbear as tolerated. Right total knee protocol. 3. Pain control, doing okay with current pain regimen. 4. Disposition: Plan to discharge to home with some home health likely later today if she does okay in therapy. Job ID: [id number]
--- NOTE | 2022-02-23 07:39 | Discharge Summary ---
Date of Service February 23, 2022 Admission HPI (Per Admitting) CHIEF COMPLAINT: Right knee pain and discomfort. HISTORY OF PRESENT ILLNESS: The patient is a 72-year-old female with a 14-year history of fairly well-controlled MS who presents for surgical treatment of her right knee. She has got a long history of knee pain and discomfort, describes it has gotten worse over time. She has been followed by Dr. Cabello of [facility]. She has failed conservative measures. She would like to have her knee replaced. He apparently could not get her in for several months ago, so she presents here for surgical management. She is not interested in further conservative care. She has been exhausted that. Her pain is global. The more she is on it, the more it hurts. It is increased with weightbearing. Limps more as the day goes on. PAST MEDICAL HISTORY: Significant for, 1. MS x14 years. 2. Low back pain/sciatica. PAST SURGICAL HISTORY: Includes, 1. Hysterectomy. 2. Varicose vein surgery. 3. Breast cyst removal. 4. Inguinal hernia repair. ALLERGIES: Gluten. CURRENT MEDICATIONS: Include. 1. Vitamin C. 2. Cannabidiol. 3. CBD oil. 4. Vitamin D. 5. Digestive enzymes. 6. Acetylcysteine. 7. Fisetin. 8. Lutein. 9. Hesperidin. 10. Zeaxanthin. 11. Multivitamin. 12. Naltrexone. 13. Mirapex. 14. [place]-3. 15. Triphala herbal medicine. 16. Turmeric. 17. Ubiquinone. 18. Vitamin E. SOCIAL HISTORY: A 72-year-old female. She is . Her is a investment sales assistant. She does not smoke. FAMILY HISTORY: Noncontributory. REVIEW OF SYSTEMS: Negative for diabetes. She does carry this MS diagnosis, which is well controlled. No fevers. No history of DVT or PE. Admission Exam (Per Admitting) PHYSICAL EXAMINATION: GENERAL: Shows a pleasant middle-aged female. Looks to be in good health. HEENT: Benign. NECK: Supple. No lymphadenopathy. LUNGS: Clear to auscultation. HEART: Regular rate and rhythm. ABDOMEN: Soft, nontender, nondistended. EXTREMITIES: Grossly neurovascularly intact except as follows: Examination of the right knee reveals the patient ambulates independently. Limps a little bit on the right side. She has got varus alignment to her knee. She does have a varus thrust with weightbearing. She has got bony hypertrophy medially. Range of motion is 5 degrees short of full extension to 120 degrees of flexion. No instability. Principal Diagnosis Same as "Discharge Diagnosis" noted below under Discharge Instructions. Discharge Data Procedures Performed Operation Date: 02/17/22 08:45 Actual Procedures p Right Total Knee Arthroplasty(Right) - Jerrod Shine MD Ordered Studies 02/17/22 05:00 US - OR guided needle placemen Routine Hospital Course (1) Status post right knee replacement: Pt underwent R TKR on 02/17/2022. No issues post operatively. Discharged home to home health on POD 1. PG Care Time/CCT Total # of Minutes Spent Total Time Spent with Patient: Total time spent is greater than 50% in coordination of care (as documented) at patient's floor/unit and/or counseling patient: Discharge Plan Discharge Items Patient Disposition: Home - Home Health Services Reason For Visit: Right Knee Osteoarthritis Discharge Diagnosis: Right Knee Replacement Activity: Per Instructions section Weightbearing: Full weightbearing Non-emergency contact: Surgeon Call non-emergency contact if: you have any medication questions Follow-up/Referrals: Nia Christy DO [Primary Care Provider] - Diet: Regular Addtl Attending Provider Instructions: ACTIVITY RECOMMENDATIONS: Physical Therapy: * You will go to physical therapy three times each week for four to six weeks after your surgery in order to regain your knee range of motion and to retrain your knee to work properly. * It is just as important to make sure you are getting your knee perfectly straight as it is to regain your knee bend. * Taking a pain pill an hour before therapy can help you have a more productive and comfortable therapy session. Home Exercise: * You were shown a series of exercises (heel props, heel slides, etc.) in the hospital. Do these exercises three to four times each day including the exercises you were shown in physical therapy. Walking: * Get up and walk several times each day. For the first four weeks, try not to stand or walk for more than one hour at a time. If you do stand or walk for more than one hour, you will not hurt anything, but your knee and leg will likely swell. * As you feel comfortable, you may change from the walker or crutches to a cane and then to independent walking. MEDICATIONS: New Medicine: * You will likely be taking one or more of these medications: 1. Oxycodone - A quick and shorter-acting pain medication. Take one to two tablets every six hours to lessen your pain. 2. Aspirin - Thins your blood to lessen the chance of forming a blood clot. * The most common side effects of pain medicine and iron are nausea and constipation. If nausea or constipation is too much of a problem or if you have any questions about your new medicines or doses, call [facility] at . We will try to help you manage these issues. "VERY IMPORTANT TO READ AND REVIEW" Pain: * The immediate post-operative period after knee replacement surgery is often quite painful. * You are given a prescription for pain medicine. You should take it, as directed, when you need it, especially before physical therapy and before going to bed. Pain that interferes with sleep is very common and can last several months. * You will likely need pain medicine for the first four to six weeks. It will not stop all of the pain. The pain will lessen and as you feel better, you may change to milder pain medicine such as Tylenol. * The most common side effects of pain medicine are nausea and constipation, so don't take more than you need. SPECIAL CARE INSTRUCTIONS: TEDs/Elastic Stockings: * The white elastic stockings help limit swelling and prevent blood clots from forming in your legs. The more you wear them, the more they work. * Wear them for six weeks after knee replacement surgery and four weeks after partial knee replacement. Incision Site Care: * Remove dressing postoperative day 2 and then shower. Keep direct shower pressure off the incision site. * After showering, cover alysa with dry gauze and change daily or more frequently if the dressing is getting saturated with drainage. * Use the LAILA stockings to hold dressing in place. DO NOT apply tape on the skin. * May completely stop using bandage if wound is dry and no drainage * Alysa are removed between 2 and 3 weeks post-op. If your follow-up appointment is made before 2 weeks, please have your appointment re- scheduled. It is too early to remove the alysa. Prevention of Infection: * Take antibiotics one hour before any dental cleaning, dental work, urological procedure, gastrointestinal procedure or any invasive surgery in order to prevent your new joint from getting infected. * You may get the antibiotics from the doctor performing the procedure or you may call our office at [phone] before and we will call in a prescription to the pharmacy of your choice. Things to Watch For: * Drainage from the incision site that occurs more than one week after your surgery. * Severely increased knee/leg pain or swelling. * Increased redness at the incision site. * Fever above 102 degrees Fahrenheit. * Unusual chest pain or shortness of breath. * Unusual pain or burning with urination. Call [facility] at [phone] with any of the above problems or if you have any questions about your medicines or recovery. FOLLOW UP VISIT: Make an appointment to see your doctor for approximately two weeks after surgery for a progress check and staple removal by calling the office at [phone]. Pending Studies at Discharge: No Stand-Alone Forms: [facility] Platform[facility], Smoking Cessation Medications and DC Order Prescriptions: Continued oxycodone 5 mg tablet 5 mg PO Q6 PRN (Reason: pain) Qty: 40 RF: 0 ondansetron HCl 4 mg tablet 4 mg PO Q6 PRN (Reason: nausea) Qty: 30 RF: 0 ketorolac 10 mg tablet 10 mg PO Q6 5 Days Qty: 20 RF: 0 acetaminophen 500 mg capsule 1,000 mg PO TID 30 Days Qty: 180 RF: 0 aspirin [Itz Low Dose Aspirin] 81 mg tablet,delayed release (DR/EC) 81 mg PO BID 45 Days Qty: 90 RF: 0 sennosides-docusate sodium [Senokot-S] 8.6-50 mg tablet 1 tab-cap PO DAILY Qty: 14 RF: 0 multivitamin [Daily Multi-Vitamin] Tablet 1 tab PO DAILY RF: 0 CBD oil 25 mg PO QAM RF: 0 Triphala Herbal for Digestion 2 tab PO BID RF: 0 ashwagandha root extract 300 mg capsule 300 mg PO DAILY RF: 0 Circutol 1 tab PO BID RF: 0 vitamin E 200 unit capsule 400 unit PO BID RF: 0 cholecalciferol (vitamin D3) 125 mcg/mL (5,000 unit/mL) drops 125 mcg PO HS RF: 0 tumeric with curmumin 1 tab PO DAILY RF: 0 rutin 500 mg tablet 500 mg PO BID RF: 0 ascorbic acid (vitamin C) 1,000 mg tablet 500 mg PO BID RF: 0 ubiquinone 90 mg tablet,disintegrating 200 mg PO DAILY RF: 0 hesperidin-diosmin 250-650 mg tablet 1 tab PO DAILY RF: 0 omega-3 fatty acids [Super [place]-3] 1,000 mg capsule 1,280 mg PO DAILY RF: 0 magnesium 200 mg Tablet 300 mg PO HS RF: 0 magnesium citrate 100 mg Tablet 400 mg PO HS RF: 0 Algae Amilcar Plus 2 dose PO DAILY RF: 0 gabapentin 300 mg Tablet 300 mg PO QAM RF: 0 Devigest 2 tab PO DAILY RF: 0 Nattovena 1 tab PO BID RF: 0 Neprinol 1 tab PO BID RF: 0 Pectasol 1 cap PO BID RF: 0 Querctetin 500 mg PO QAM RF: 0 Serretia 1 tab PO BID RF: 0 Strontium 750 mg PO QAM RF: 0 Thyroid Support 1 tab PO BID RF: 0 Vein Care 1 tab PO BID RF: 0 Amino Acid Syngergy 3 tab PO BID RF: 0 Discharge Orders: Discharge Order (Routine); Ordered 02/18/22 Ordered By: Jerrod Shine Admission Data Admit Date/Time: 02/17/22 11:02 Attending Provider: Jerrod Shine Admit Provider: Jerrod Shine Primary Care Provider: Nia Christy Other Providers: [facility],Home [facility] Other Interventions: Discharge Summary Assessment (RN) Last Done: 02/18/22 09:49
== END 2022-02-18 14:36 | disposition home health service (06) ==
LOC: 3W 06:41 → ASU 06:41
DX: Z98.890 Other specified postprocedural states; Z88.2 Allergy status to sulfonamides; K90.0 Celiac disease; I95.89 Other hypotension; K55.20 Angiodysplasia of colon without hemorrhage; M25.761 Osteophyte, right knee; Z79.899 Other long term (current) drug therapy; Z91.048 Other nonmedicinal substance allergy status; Z91.018 Allergy to other foods; M17.11 Unilateral primary osteoarthritis, right knee